=== PATIENT | female | born 1945 | race Caucasian/White ===

== ENCOUNTER 2017-08-09 17:01 | Inpatient (IN) ==
[2017-08-09] MEDS ORDERED: ZALEPLON 5 MG CAPSULE PO PRN (17:13)
[2017-08-09] MEDS ORDERED: LACTULOSE 20 GM/30 ML UDCUP PO PRN (17:13)
[2017-08-09] MEDS ORDERED: ONDANSETRON 4 MG/2 ML VIAL IV PRN (17:13)
[2017-08-09] MEDS ORDERED: guaiFENesin/DM ER 600-30 MG TABLET PO PRN (17:13)
[2017-08-09] MEDS ORDERED: MAGNESIUM SULF RIDER 2 GM in PREMIX 1 EACH IV PRN (17:13)
[2017-08-09] MEDS ORDERED: diphenhydrAMINE CAP 25 MG CAPSULE PO PRN (17:13)
[2017-08-09] MEDS ORDERED: DOCUSATE SODIUM 100 MG CAPSULE PO PRN (17:13)
[2017-08-09] MEDS ORDERED: ACETAMINOPHEN 325 MG TABLET PO PRN (17:13)
[2017-08-09] MEDS ORDERED: POTASSIUM CHLORIDE 20 MEQ TABLET PO PRN (17:13)
[2017-08-09] MEDS ORDERED: MAGNESIUM SULF RIDER 4 GM in PREMIX 1 EACH IV PRN (17:13)
[2017-08-09 19:00] LABS: Basophils # 0.1 10*3/uL (0.0-0.2); Basophils % 0.4 % (0.0-0.8); Eosinophils # 0.3 10*3/uL (0.0-0.87); Eosinophils % 2.1 % (0.00-10.9); Hematocrit 38.2 VOL% (35.7-47.0); Immature Granulocytes % 0.5 %; Immature Granulocytes Absolute 0.06 #; Lymphocytes # 1.7 10*3/uL (1.4-4.0); Lymphocytes % 14.5 % (21.3-54.2); Mean Corpuscular Hemoglobin 30 PG (27-34); Mean Corpuscular Volume 89.5 FL (87-102); Mean Platelet Volume 9.9 FL (9.6-12.0); Monocytes # 0.5 10*3/uL (0.11-0.8); Monocytes % 4.4 % (1.7-12.7); Neutrophils # 9.1 10*3/uL (1.4-7.4); Neutrophils % 78.1 % (38.7-73.9); Platelet Count 367 T/CUMM (130-400); Red Blood Count 4.27 MC/CUMM (3.8-5.5); White Blood Count 11.7 T/CUMM (4-12)
[2017-08-09 19:46] LABS: Troponin I Only < 0.015 NG/ML (0.00-0.045)
[2017-08-09 19:51] LABS: Albumin 3.5 G/DL (3.4-5.0); Bilirubin,Total 0.5 MG/DL (0.2-1.0); Calcium 8.7 MG/DL (8.5-10.1); Osmolality,Calculated 274.1 MOS/KG (273-304); Potassium 3.7 MMOL/L (3.5-5.1); Thyroid Stimulating Hormone 1.5 uIU/ml (0.358-3.74); Total Protein 7.2 G/DL (6.4-8.3)
[2017-08-09] MEDS ORDERED: INDOMETHACIN 25 MG CAPSULE PO SCH (21:00)
[2017-08-09] MEDS ORDERED: ENOXAPARIN 40 MG/0.4 ML SYRINGE SUBCUT SCH (21:00)
[2017-08-09 21:30] LABS: Troponin I Only < 0.015 NG/ML (0.00-0.045)
[2017-08-09] MEDS: methylPREDNISolone SOD SUC 125 MG/2 ML VIAL IV SCH (21:39)
[2017-08-09] MEDS: COLCHICINE 0.6 MG TABLET PO SCH (21:39)
[2017-08-09 23:15] LABS: Apearance,Urine Slightly Hazy (Clear); Bacteria,Urine Many /HPF (Few); Bilirubin,Urine Negative (Negative); Blood, Urine Negative (Negative); Glucose,Urine (UA) Negative (Negative); Hyaline Casts,Urine 1 /LPF (0-3); Ketones,Urine Negative (Negative); Mucus,Urine Occasional /LPF (Occasional); Nitrite,Urine Negative (Negative); Protein,Urine Negative; RBC,Urine 1 /HPF (0-4); Squamous Epithelial Cell,Urine Occasional /HPF (0-10); Urine Color Yellow (Yellow); Urine Specific Gravity 1.021 (1.001-1.035); WBC,Urine 1 /HPF (0-6)
[2017-08-10] MEDS: methylPREDNISolone SOD SUC 125 MG/2 ML VIAL IV SCH ×2 (04:18→14:27)
[2017-08-10 05:04] LABS: Basophils % 0.3 % (0.0-0.8); Eosinophils % 0.1 % (0.00-10.9); Hematocrit 39.1 VOL% (35.7-47.0); Hemoglobin 13.3 GM/DL (12.0-16.0); Immature Granulocytes % 0.8 %; Immature Granulocytes Absolute 0.08 #; Lymphocytes # 0.8 10*3/uL (1.4-4.0); Lymphocytes % 8.5 % (21.3-54.2); Mean Corpuscular Hemoglobin 30 PG (27-34); Mean Corpuscular Volume 89.5 FL (87-102); Mean Platelet Volume 10.5 FL (9.6-12.0); Monocytes # 0.1 10*3/uL (0.11-0.8); Neutrophils # 8.7 10*3/uL (1.4-7.4); Neutrophils % 89.3 % (38.7-73.9); Platelet Count 339 T/CUMM (130-400); Red Blood Count 4.37 MC/CUMM (3.8-5.5); Red Cell Distribution Width 12.8 % (9.3-17.3); White Blood Count 9.8 T/CUMM (4-12)
[2017-08-10 05:30] LABS: Magnesium 2.3 MG/DL (1.8-2.4); Osmolality,Calculated 280.8 MOS/KG (273-304); Potassium 4.3 MMOL/L (3.5-5.1); Risk Ratio 6.48; VLDL CHOLESTEROL 22.8 MG/DL
[2017-08-10] MEDS ORDERED: CITALOPRAM 20 MG TABLET PO SCH (09:00)
[2017-08-10] MEDS ORDERED: VALSARTAN/HCTZ 160-12.5 MG TABLET PO SCH (09:00)
[2017-08-10] MEDS ORDERED: METOPROLOL SUCCINATE XL 50 MG TABLET PO SCH (09:00)
[2017-08-10] MEDS ORDERED: PANTOPRAZOLE 40 MG TABLET PO SCH (09:00)
[2017-08-10 10:05] LABS: Troponin I Only < 0.015 NG/ML (0.00-0.045)
[2017-08-10 12:39] VITALS: BP 102/68
[2017-08-10] MEDS: COLCHICINE 0.6 MG TABLET PO SCH (13:14)
[2017-08-10] MEDS ORDERED: predniSONE 20 MG TABLET PO SCH (21:00)
[2017-08-11] MEDS ORDERED: predniSONE 20 MG TABLET PO SCH (09:00)
== END 2017-08-10 14:18 | disposition home or self-care (01) | DRG 315 ==
LOC: N.TELEN → OBSVTOIN 17:57
PROVIDERS: ADMIT Internal Medicine Clinical Cardiac Electrophysiology; ATTEND Internal Medicine Clinical Cardiac Electrophysiology